=== PATIENT | male | born 1955 | race Caucasian/White ===

== ENCOUNTER 2023-05-14 22:38 | Inpatient (IN) | payer MEDICARE, SELFPAY ==
[2023-05-14] MEDS ORDERED: Acetaminophen 325 MG TAB PO PRN (23:07)
[2023-05-14] MEDS ORDERED: Ondansetron PF 4 MG/2 ML Vial IVP PRN (23:07)
[2023-05-14] MEDS ORDERED: Electrolyte Replacement Protocol 1 EACH FS SCH (23:45)
[2023-05-14] MEDS ORDERED: Lorazepam 2 MG/ML VIAL IM PRN (23:55)
[2023-05-14] MEDS ORDERED: Lorazepam 1 MG TAB PO PRN (23:55)
[2023-05-14] MEDS ORDERED: Thiamine HCl 200 MG/2 ML VIAL SLOW IVP SCH (23:59)
[2023-05-15 00:09] VITALS: BMI 21.9
[2023-05-15 00:22] LABS: Anion Gap 12 mmol/L (10-20); BUN (Urea Nitrogen) 7 mg/dL (8.4-25.7); Calc. Creatinine Clearance 108 mL/min (70-130); Calcium 9.3 mg/dL (7.8-10.44); Carbon Dioxide 27 mmol/L (23-31); Chloride 99 mmol/L (98-107); Estimated GFR 100; Glucose 101 mg/dL (80-115); Magnesium 1.8 mg/dL (1.6-2.6); Sodium 135 mmol/L (136-145)
[2023-05-15 00:42] LABS: Phosphorus 2.3 mg/dL (2.3-4.7)
[2023-05-15] MEDS: Lorazepam 1 MG TAB PO SCH ×5 (01:14→23:02)
[2023-05-15] MEDS ORDERED: Potassium Chloride 20 MEQ TAB PO SCH ×2 (01:45→08:15)
[2023-05-15] MEDS ORDERED: Magnesium 2 GM/50 ML(in water) 2 GM in Premix Bag 1 BAG IVPB SCH (01:45)
[2023-05-15 05:30] LABS: #Eosinphils 0.1 thou/uL (0.0-0.7); #Monocytes 0.8 thou/uL (0.11-0.59); #Neutrophils 4.8 thou/uL (1.40-6.50); %Basophils 0.4 % (0.0-1.0); %Eosinophils 1.1 % (0.0-10.0); %Lymphocytes 19.7 % (21.0-51.0); %Monocytes 11.1 % (0.0-10.0); Hemoglobin 10.3 g/dL (14.0-18.0); Mean Corpuscular HGB CONC 33.4 g/dL (32.0-36.0); Mean Corpuscular Volume 92.8 fl (78.0-98.0); Mean Platelet Volume 10.9 fL (7.4-10.4); RBC Distribution Width 13.8 % (11.5-14.5); Red Blood Cell (RBC) Count 3.32 mill/uL (4.70-6.10); White Blood Cell (WBC) Count 7.2 10x3/uL (4.8-10.8)
[2023-05-15 05:38] LABS: Platelet Count 68 10x3/uL (130-400)
[2023-05-15 05:54] LABS: Anion Gap 12 mmol/L (10-20); BUN (Urea Nitrogen) 8 mg/dL (8.4-25.7); Calc. Creatinine Clearance 120 mL/min (70-130); Calcium 8.8 mg/dL (7.8-10.44); Carbon Dioxide 26 mmol/L (23-31); Chloride 102 mmol/L (98-107); Estimated GFR 103; Glucose 84 mg/dL (80-115); Magnesium 2.2 mg/dL (1.6-2.6); Potassium 3.1 mmol/L (3.5-5.1); Sodium 137 mmol/L (136-145)
[2023-05-15 05:59] LABS: ALT (SGPT) 21 U/L (8-55); AST (SGOT) 40 U/L (5-34); Albumin 3.5 g/dL (3.4-4.8); Alkaline Phosphatase 45 U/L (40-110); Bilirubin, Direct 0.7 mg/dL (0.1-0.3); Bilirubin, Total 1.6 mg/dL (0.2-1.2); Protein, Total 5.9 g/dL (5.8-8.1)
[2023-05-15 06:45] LABS: INR-International Normal Ratio 1.1; Prothrombin Time 14.2 sec (12.0-14.7)
[2023-05-15] MEDS ORDERED: Multivit, Therapeutic 1 TAB PO SCH (09:00)
[2023-05-15] MEDS ORDERED: Folic Acid 1 MG TAB PO SCH (09:00)
[2023-05-15] MEDS: Multivitamins, Adult 10 ML, Folic Acid 1 MG, Thiamine HCl 100 MG in Dextrose 5 %-0.45 %... IV SCH (09:16)
[2023-05-15] MEDS: Acetaminophen/Codeine 30-300mg Tablet PO SCH ×2 (17:37→23:02)
[2023-05-15] MEDS ORDERED: Lorazepam 1 MG TAB PO PRN (23:55)
[2023-05-16 05:50] LABS: #Eosinphils 0.2 thou/uL (0.0-0.7); #Monocytes 0.7 thou/uL (0.11-0.59); #Neutrophils 4.1 thou/uL (1.40-6.50); %Basophils 0.5 % (0.0-1.0); %Eosinophils 2.4 % (0.0-10.0); %Lymphocytes 21.9 % (21.0-51.0); %Monocytes 10.7 % (0.0-10.0); Hemoglobin 9.5 g/dL (14.0-18.0); Mean Corpuscular HGB CONC 32.6 g/dL (32.0-36.0); Mean Corpuscular Hemoglobin 30.8 pg (27.0-31.0); Mean Corpuscular Volume 94.5 fl (78.0-98.0); Mean Platelet Volume 11.3 fL (7.4-10.4); Platelet Count 63 10x3/uL (130-400); RBC Distribution Width 13.8 % (11.5-14.5); Red Blood Cell (RBC) Count 3.08 mill/uL (4.70-6.10); White Blood Cell (WBC) Count 6.4 10x3/uL (4.8-10.8)
[2023-05-16] MEDS: Acetaminophen/Codeine 30-300mg Tablet PO SCH ×3 (05:52→17:45)
[2023-05-16] MEDS: Lorazepam 1 MG TAB PO SCH ×3 (05:53→17:45)
[2023-05-16 06:16] LABS: Anion Gap 11 mmol/L (10-20); BUN (Urea Nitrogen) 7 mg/dL (8.4-25.7); Calc. Creatinine Clearance 113 mL/min (70-130); Calcium 8.4 mg/dL (7.8-10.44); Carbon Dioxide 26 mmol/L (23-31); Chloride 103 mmol/L (98-107); Estimated GFR 101; Glucose 93 mg/dL (80-115); Magnesium 1.8 mg/dL (1.6-2.6); Potassium 3.7 mmol/L (3.5-5.1); Sodium 136 mmol/L (136-145)
[2023-05-16] MEDS ORDERED: Magnesium 2 GM/50 ML(in water) 2 GM in Premix Bag 1 BAG IVPB SCH (08:00)
[2023-05-16] MEDS: Multivitamins, Adult 10 ML, Folic Acid 1 MG, Thiamine HCl 100 MG in Dextrose 5 %-0.45 %... IV SCH (14:21)
[2023-05-16 16:19] VITALS: BP 134/66; TEMP 97.5
[2023-05-16] MEDS ORDERED: Lorazepam 0.5 MG TAB PO SCH (23:45)
[2023-05-16] MEDS ORDERED: Lorazepam 1 MG TAB PO PRN (23:55)
[2023-05-17] MEDS ORDERED: Thiamine 100 MG TAB PO SCH (21:00)
[2023-05-17] MEDS ORDERED: Lorazepam 0.5 MG TAB PO PRN (23:55)
== END 2023-05-16 18:19 | disposition home health service (06) | DRG 897 ==
LOC: 2SE 22:38 → OBSVTOIN 05-15 14:59
PROVIDERS: ADMIT Internal Medicine; ATTEND Hospitalist
DX: F10.239 Alcohol dependence with withdrawal, unspecified (principal); E87.1 Hypo-osmolality and hyponatremia; F10.221 Alcohol dependence with intoxication delirium; M19.90 Unspecified osteoarthritis, unspecified site; R44.1 Visual hallucinations; E87.6 Hypokalemia; D69.6 Thrombocytopenia, unspecified; Z79.899 Other long term (current) drug therapy; Z85.828 Personal history of other malignant neoplasm of skin; Z90.49 Acquired absence of other specified parts of digestive tract; Z98.890 Other specified postprocedural states
CPT/HCPCS: 36415; 36416; 80048; 80076; 83735; 84100; 85025; 85610; 85730; 96374; 96375; G0378; J3411; J3475; J7042

== ENCOUNTER → 2024-09-19 | Emergency (ER) | payer MEDICAID, SELFPAY ==
[~2024-09-19] MED LIST: Acetaminophen 500 MG TAB ONE
[2024-09-19 21:50] LABS: #Basophils 0.05 10x3/uL (0.0-0.2); %Basophils 0.3 % (0.0-1.0); %Eosinophils 0.2 % (0.0-10.0); %Lymphocytes 8.3 % (21.0-51.0); %Monocytes 5.8 % (0.0-10.0); Hematocrit 22.2 % (42.0-52.0); Hemoglobin 7.4 g/dL (14.0-18.0); Mean Corpuscular HGB CONC 33.3 g/dL (32.0-36.0); Mean Corpuscular Volume 89.9 fL (78.0-98.0); Mean Platelet Volume 12.5 fL (7.4-10.4); Platelet Count 41 10x3/uL (130-400); RBC Distribution Width 15.5 % (11.5-14.5); Red Blood Cell (RBC) Count 2.47 mill/uL (4.70-6.10)
[2024-09-19 22:10] LABS: ALT (SGPT) 33 U/L (8-55); AST (SGOT) 84 U/L (5-34); Albumin 2.8 g/dL (3.4-4.8); Alkaline Phosphatase 629 U/L (40-110); Anion Gap 19 mmol/L (10-20); BUN (Urea Nitrogen) 8 mg/dL (8.4-25.7); Calc. Creatinine Clearance 0 mL/min (70-130); Calcium 8.1 mg/dL (7.8-10.44); Carbon Dioxide 20 mmol/L (23-31); Chloride 87 mmol/L (98-107); Estimated GFR 105; Globulin 3.5 g/dL (2.4-3.5); Glucose 99 mg/dL (83-110); Magnesium 1.9 mg/dL (1.6-2.6); Potassium 3.5 mmol/L (3.5-5.1); Protein, Total 6.3 g/dL (5.8-8.1); Sodium 122 mmol/L (136-145)
[2024-09-19 22:11] LABS: Lactic Acid 1.46 mmol/L (0.5-2.2)
[2024-09-19 22:20] LABS: Alcohol 19.8 mg/dL (Less than 10); Salicylate Less than 8.0 mg/dL (Less than 8.0)
[2024-09-19 22:21] LABS: Acetaminophen Less than 10 mcg/mL (Less than 10)
[2024-09-19 23:45] LABS: Amphetamine Not Detected (NotDetected); Bacteria/HPF None Seen HPF (None Seen); Barbiturates Screen Not Detected (NotDetected); Benzodiazepine Screen Not Detected (NotDetected); Bilirubin Negative (Negative); Blood, Urine Negative (Negative); CAUTI Indications for Culture Alt mental st,lethar; Clarity Clear (Clear); Cocaine Metabolite Screen Not Detected (NotDetected); Glucose, Urine (Dipstick) Normal (Negative); Ketone, Urine Negative (Negative); Leukocyte Negative Leu/uL (Negative); Methadone Not Detected (NotDetected); Methamphetamine Not Detected (NotDetected); Nitrite Negative (Negative); Opiate Screen Not Detected (NotDetected); Oxycodone Screen Not Detected (NotDetected); Phencyclidine (PCP) Not Detected (NotDetected); Protein, Urine (Dipstick) Negative (Neg-Trace); RBC/HPF 0-3 HPF (0-3); Specific Gravity, Urine 1.003 (1.002-1.036); Squamous Epithelial None Seen HPF (0-3); THC/Cannabinoid Screen Detected (NotDetected); Tricyclic Screen Not Detected (NotDetected); WBC/HPF 0-3 HPF (0-3); pH, Urine 5.5 (5.0-9.0)
[2024-09-19 23:46] LABS: Urine Culture Reflex No No
== END ==
LOC: ERS 18:10
DX: R25.9 Unspecified abnormal involuntary movements (principal); F10.20 Alcohol dependence, uncomplicated; R91.1 Solitary pulmonary nodule; S40.012A Contusion of left shoulder, initial encounter; S00.12XA Contusion of left eyelid and periocular area, initial encounter; I10 Essential (primary) hypertension; W10.9XXA Fall (on) (from) unspecified stairs and steps, initial encounter; Y90.0 Blood alcohol level of less than 20 mg/100 ml
CPT/HCPCS: 70450; 72125; 80053; 80306; 80307; 81001; 82140; 83605; 83735; 84146; 85025; 93005

== ENCOUNTER 2024-09-25 12:00 | Inpatient (IN) | payer MEDICARE, MEDICAID ==
[2024-09-25 14:14] LABS: #Basophils 0.04 10x3/uL (0.0-0.2); #Eosinophils Less than 0.03 10x3/uL (0.0-0.7); %Basophils 0.2 % (0.0-1.0); %Eosinophils 0.1 % (0.0-10.0); %Lymphocytes 7.3 % (21.0-51.0); %Monocytes 6.7 % (0.0-10.0); %Neutrophils 84.4 % (42.0-75.0); Hematocrit 26.7 % (42.0-52.0); Hemoglobin 8.2 g/dL (14.0-18.0); Mean Corpuscular HGB CONC 30.7 g/dL (32.0-36.0); Mean Corpuscular Hemoglobin 28.3 pg (27.0-31.0); Mean Corpuscular Volume 92.1 fL (78.0-98.0); Platelet Count 14 10x3/uL (130-400); RBC Distribution Width 16.7 % (11.5-14.5)
[2024-09-25 14:23] LABS: ALT (SGPT) 28 U/L (8-55); AST (SGOT) 53 U/L (5-34); Albumin 2.4 g/dL (3.4-4.8); Alkaline Phosphatase 519 U/L (40-110); Anion Gap 15 mmol/L (10-20); BUN (Urea Nitrogen) 26 mg/dL (8.4-25.7); Bilirubin, Total 1.9 mg/dL (0.2-1.2); Calc. Creatinine Clearance 0 mL/min (70-130); Carbon Dioxide 22 mmol/L (23-31); Chloride 101 mmol/L (98-107); Estimated GFR 98; Globulin 3.2 g/dL (2.4-3.5); Glucose 123 mg/dL (83-110); Potassium 3.8 mmol/L (3.5-5.1); Protein, Total 5.6 g/dL (5.8-8.1); Sodium 134 mmol/L (136-145)
[2024-09-25 14:24] LABS: Acetaminophen Less than 10 mcg/mL (Less than 10); Alcohol Less than 10.0 mg/dL (Less than 10); Salicylate Less than 8.0 mg/dL (Less than 8.0)
[2024-09-25] MEDS ORDERED: Thiamine HCl 200 MG/2 ML VIAL ONE (14:31)
[2024-09-25 15:43] LABS: Amphetamine Not Detected (NotDetected); Barbiturates Screen Not Detected (NotDetected); Benzodiazepine Screen Detected (NotDetected); Cocaine Metabolite Screen Not Detected (NotDetected); Methadone Not Detected (NotDetected); Methamphetamine Not Detected (NotDetected); Opiate Screen Not Detected (NotDetected); Oxycodone Screen Not Detected (NotDetected); Phencyclidine (PCP) Not Detected (NotDetected); THC/Cannabinoid Screen Detected (NotDetected); Tricyclic Screen Not Detected (NotDetected)
[2024-09-25] MEDS ORDERED: Sodium Chloride 0.9% 100 ML ONE (15:47)
[2024-09-25] MEDS ORDERED: cefTRIAXone (ROCEPHIN) 1 GM VIAL ONE (15:47)
[2024-09-25 16:02] LABS: Bacteria/HPF None Seen HPF (None Seen); Bilirubin Negative (Negative); Blood, Urine Negative (Negative); CAUTI Indications for Culture Alt mental st,lethar; Clarity Clear (Clear); Glucose, Urine (Dipstick) Normal (Negative); Ketone, Urine Negative (Negative); Leukocyte Negative Leu/uL (Negative); Nitrite Negative (Negative); Protein, Urine (Dipstick) 20 mg/dL (Neg-Trace); RBC/HPF 0-3 HPF (0-3); Specific Gravity, Urine 1.023 (1.002-1.036); Squamous Epithelial 0-3 HPF (0-3); Urobilinogen 3 mg/dL (Less than 2); WBC/HPF 0-3 HPF (0-3); pH, Urine 5.5 (5.0-9.0)
[2024-09-25 16:09] LABS: Urine Culture Reflex No No
[2024-09-25 18:01] LABS: Actual Bicarbonate (HCO3a) 19.2 mEq/L (22-28); Analyzer IN Cardio ER; CO2 Tension 28.1 mmHg (35.0-45.0); Hematocrit-ABG 25 % (42.0-52.0); Hemoglobin (Hb) 8.4 g/dL (14.0-18.0); O2 Tension (PaO2), arterial 170.6 mmHg (> 70.0); pH, Arterial 7.453 (7.35-7.45)
[2024-09-25 18:18] LABS: ALV-art Gradient 507.275 mmHg (0-20); Puncture Site Left Brachial artery
[2024-09-25] MEDS ORDERED: Lorazepam 2 MG/ML VIAL IM PRN (18:40)
[2024-09-25] MEDS ORDERED: Ondansetron PF 4 MG/2 ML Vial IVP PRN (18:40)
[2024-09-25] MEDS ORDERED: Ondansetron ODT 4 MG TAB PO PRN (18:40)
[2024-09-25] MEDS ORDERED: Acetaminophen 325 MG TAB PO PRN (18:40)
[2024-09-25] MEDS ORDERED: Electrolyte Replacement Protocol FS SCH (18:45)
[2024-09-25 18:59] VITALS: BMI 20.2
[2024-09-25] MEDS ORDERED: Lorazepam 1 MG TAB PO PRN (19:00)
[2024-09-25 19:07] LABS: #Basophils 0.03 10x3/uL (0.0-0.2); #Eosinophils Less than 0.03 10x3/uL (0.0-0.7); %Basophils 0.2 % (0.0-1.0); %Eosinophils 0.1 % (0.0-10.0); %Lymphocytes 7.7 % (21.0-51.0); %Monocytes 5.4 % (0.0-10.0); %Neutrophils 85.3 % (42.0-75.0); Hematocrit 26.1 % (42.0-52.0); Hemoglobin 8.1 g/dL (14.0-18.0); Mean Corpuscular Hemoglobin 28.4 pg (27.0-31.0); Mean Corpuscular Volume 91.6 fL (78.0-98.0); Platelet Count 14 10x3/uL (130-400); RBC Distribution Width 16.5 % (11.5-14.5); Red Blood Cell (RBC) Count 2.85 mill/uL (4.70-6.10)
[2024-09-25 19:10] LABS: Lactic Acid 2.06 mmol/L (0.5-2.2)
[2024-09-25 19:15] LABS: Magnesium 2.2 mg/dL (1.6-2.6)
[2024-09-25 19:17] LABS: INR-International Normal Ratio 2.1; Prothrombin Time 23.4 sec (12.0-14.7)
[2024-09-25 19:18] LABS: PTT 40.7 sec (22.9-36.1)
[2024-09-25 19:21] LABS: ALT (SGPT) 26 U/L (8-55); AST (SGOT) 47 U/L (5-34); Albumin 2.3 g/dL (3.4-4.8); Alkaline Phosphatase 487 U/L (40-110); Anion Gap 15 mmol/L (10-20); BUN (Urea Nitrogen) 25 mg/dL (8.4-25.7); Bilirubin, Total 1.5 mg/dL (0.2-1.2); Calc. Creatinine Clearance 95 mL/min (70-130); Calcium 7.4 mg/dL (7.8-10.44); Carbon Dioxide 20 mmol/L (23-31); Chloride 105 mmol/L (98-107); Estimated GFR 101; Globulin 3.1 g/dL (2.4-3.5); Glucose 125 mg/dL (83-110); Protein, Total 5.4 g/dL (5.8-8.1); Sodium 136 mmol/L (136-145)
[2024-09-25] MEDS ORDERED: Piperacillin/Tazobactam 3.375 GM VIAL ONE (20:29)
[2024-09-25] MEDS: Piperacillin/Tazobactam 3.375 GM in Sodium Chloride 0.9% 100 ML IVPB SCH (20:36)
[2024-09-25] MEDS ORDERED: Furosemide 20 MG (2 mL) VIAL ONE (20:41)
[2024-09-25] MEDS: Furosemide 20 MG (2 mL) VIAL SLOW IVP SCH (21:13)
[2024-09-25] MEDS: Vancomycin (BATCH) 1.5 GM in Premix 1 BAG IVPB SCH (21:21)
[2024-09-25] MEDS ORDERED: Albumin 25% 25 GM (100 mL) BOT IVPB SCH (23:59)
[2024-09-26] MEDS: Piperacillin/Tazobactam 3.375 GM in Sodium Chloride 0.9% 100 ML IVPB SCH (01:11)
[2024-09-26] MEDS ORDERED: Ipratropium/Albuterol 3 ML NEB NEB PRN (01:36)
[2024-09-26 05:29] LABS: #Basophils 0.06 10x3/uL (0.0-0.2); #Eosinophils Less than 0.03 10x3/uL (0.0-0.7); %Basophils 0.3 % (0.0-1.0); %Eosinophils 0.1 % (0.0-10.0); %Lymphocytes 7.1 % (21.0-51.0); %Monocytes 7.8 % (0.0-10.0); %Neutrophils 83.3 % (42.0-75.0); Hematocrit 27.3 % (42.0-52.0); Hemoglobin 8.2 g/dL (14.0-18.0); Mean Corpuscular Volume 93.2 fL (78.0-98.0); Platelet Count 13 10x3/uL (130-400); RBC Distribution Width 17.2 % (11.5-14.5); Red Blood Cell (RBC) Count 2.93 mill/uL (4.70-6.10)
[2024-09-26 05:34] LABS: INR-International Normal Ratio 2.2; PTT 45.7 sec (22.9-36.1); Prothrombin Time 24.8 sec (12.0-14.7)
[2024-09-26 05:41] LABS: Phosphorus 3.8 mg/dL (2.3-4.7)
[2024-09-26] MEDS: Digoxin 0.5 MG/2 ML AMP SLOW IVP SCH (05:42)
[2024-09-26] MEDS: Digoxin 0.5 MG/2 ML AMP ONE (05:43)
[2024-09-26] MEDS ORDERED: Amiodarone 150 MG, Admixture Fee 1 EACH in Dextrose 5% in Water 100 ML IVPB SCH (05:45)
[2024-09-26] MEDS ORDERED: Amiodarone 450 MG, Admixture Fee 1 EACH in Dextrose 5% in Water 250 ML IVPB SCH (05:45)
[2024-09-26 05:46] LABS: ALT (SGPT) 24 U/L (8-55); AST (SGOT) 47 U/L (5-34); Albumin 2.2 g/dL (3.4-4.8); Alkaline Phosphatase 436 U/L (40-110); Anion Gap 15 mmol/L (10-20); BUN (Urea Nitrogen) 27 mg/dL (8.4-25.7); Bilirubin, Total 1.4 mg/dL (0.2-1.2); Calc. Creatinine Clearance 94 mL/min (70-130); Calcium 7.5 mg/dL (7.8-10.44); Carbon Dioxide 19 mmol/L (23-31); Chloride 105 mmol/L (98-107); Estimated GFR 100; Glucose 117 mg/dL (83-110); Magnesium 2.2 mg/dL (1.6-2.6); Potassium 3.8 mmol/L (3.5-5.1); Protein, Total 5.2 g/dL (5.8-8.1); Sodium 135 mmol/L (136-145)
[2024-09-26] MEDS: Amiodarone 450 MG, Admixture Fee 1 EACH in Dextrose 5% in Water 250 ML IVPB SCH (08:03)
[2024-09-26 08:04] LABS: Vancomycin, Random 15.5 ug/mL (See Comment)
[2024-09-26] MEDS: Folic Acid 1 MG TAB PO SCH (08:39)
[2024-09-26] MEDS: Multivit, Therapeutic 1 TAB PO SCH (08:39)
[2024-09-26] MEDS: Famotidine 20 MG TAB PO SCH (08:40)
[2024-09-26] MEDS: Vancomycin 1 GM in Premix 1 BAG IVPB SCH (12:09)
[2024-09-26] MEDS ORDERED: HYDROcodone/Acetaminophen 5/325 mg Tablet PO PRN (12:53)
[2024-09-26] MEDS: Thiamine HCl 200 MG/2 ML VIAL SLOW IVP SCH ×2 (16:42→17:14)
[2024-09-26 16:56] VITALS: BMI 20.8
[2024-09-26] MEDS: Sodium Chloride 0.9% 100 ML ONE (17:33)
[2024-09-26] MEDS ORDERED: Lorazepam 1 MG TAB PO PRN (19:00)
[2024-09-27 04:43] LABS: ALT (SGPT) 29 U/L (8-55); AST (SGOT) 66 U/L (5-34); Alkaline Phosphatase 345 U/L (40-110); Anion Gap 14 mmol/L (10-20); BUN (Urea Nitrogen) 27 mg/dL (8.4-25.7); Bilirubin, Total 2.2 mg/dL (0.2-1.2); Calc. Creatinine Clearance 87 mL/min (70-130); Calcium 7.7 mg/dL (7.8-10.44); Carbon Dioxide 20 mmol/L (23-31); Chloride 107 mmol/L (98-107); Estimated GFR 97; Globulin 2.8 g/dL (2.4-3.5); Glucose 117 mg/dL (83-110); Potassium 3.5 mmol/L (3.5-5.1); Protein, Total 4.8 g/dL (5.8-8.1); Sodium 137 mmol/L (136-145)
[2024-09-27 06:02] LABS: #Basophils 0.06 10x3/uL (0.0-0.2); %Basophils 0.3 % (0.0-1.0); %Eosinophils 0.2 % (0.0-10.0); %Lymphocytes 7.6 % (21.0-51.0); %Monocytes 10.7 % (0.0-10.0); %Neutrophils 79.8 % (42.0-75.0); Hematocrit 24.9 % (42.0-52.0); Hemoglobin 7.6 g/dL (14.0-18.0); Mean Corpuscular HGB CONC 30.5 g/dL (32.0-36.0); Mean Corpuscular Hemoglobin 28.1 pg (27.0-31.0); Mean Corpuscular Volume 92.2 fL (78.0-98.0); Platelet Count 9 10x3/uL (130-400); RBC Distribution Width 17.9 % (11.5-14.5)
[2024-09-27 06:17] LABS: Anisocytosis SLIGHT = 6-15 cells HPF (0-5); Band 1 % (5-11); Hypochromia SLIGHT = 6-15 cells HPF (0-5); Lymphocytes 1 % (21-51); Metamyelocyte 1 % (0-0); Monocytes 2 % (0-10); Neutrophil 94 % (42-75); Nucleated RBC (Manual Ct) 1 % (0); Platelet Adequacy Comment Platelets Decreased; Polychromasia SLIGHT = 2-3 cells HPF (0-2); Target Cells SLIGHT = 2-5 cells HPF (0-1)
[2024-09-27] MEDS: FLU (Fluad Triv) TS24-25 (65UP)/MF59C/PF 45 MCG/0.5 ML Syringe IM ONE (07:47)
[2024-09-27] MEDS ORDERED: Electrolyte Replacement Protocol FS PRN (09:00)
[2024-09-27 09:22] LABS: Hematocrit 25.5 % (42.0-52.0); Hemoglobin 7.6 g/dL (14.0-18.0); Mean Corpuscular HGB CONC 29.8 g/dL (32.0-36.0); Mean Corpuscular Hemoglobin 28.1 pg (27.0-31.0); Mean Corpuscular Volume 94.4 fL (78.0-98.0); Platelet Count 11 10x3/uL (130-400); RBC Distribution Width 17.8 % (11.5-14.5)
[2024-09-27] MEDS: Potassium Chloride 20 MEQ TAB PO SCH (09:53)
[2024-09-27 10:08] LABS: #Basophils 0.08 10x3/uL (0.0-0.2); #Eosinophils Less than 0.03 10x3/uL (0.0-0.7); %Basophils 0.3 % (0.0-1.0); %Eosinophils 0.1 % (0.0-10.0); %Lymphocytes 6.7 % (21.0-51.0); %Monocytes 10.3 % (0.0-10.0); %Neutrophils 80.7 % (42.0-75.0)
[2024-09-27] MEDS: Potassium Chloride 20 MEQ in Premix 1 BAG IVPB SCH (10:23)
[2024-09-27 11:22] LABS: Lactic Acid 1.49 mmol/L (0.5-2.2)
[2024-09-27] MEDS ORDERED: Morphine 2 MG/ML VIAL SLOW IVP PRN (12:54)
[2024-09-27] MEDS ORDERED: Lorazepam 2 MG/ML VIAL SLOW IVP PRN (12:55)
[2024-09-27 14:49] LABS: Influenza A by NAA Not Detected (NotDetected); Influenza B by NAA Not Detected (NotDetected); RSV by NAA Not Detected (NotDetected); SARS-CoV-2 NAA Rapid Test Not Detected (NotDetected)
[2024-09-27] MEDS: Morphine 2 MG/ML VIAL SLOW IVP PRN (15:24)
[2024-09-27] MEDS: Lorazepam 2 MG/ML VIAL SLOW IVP PRN (15:25)
[2024-09-27] MEDS ORDERED: Lorazepam 1 MG TAB PO PRN (19:00)
[2024-09-27 20:06] LABS: Potassium 3.6 mmol/L (3.5-5.1)
[2024-09-28 03:15] VITALS: BP 90/58; TEMP 97.3
[2024-09-28] MEDS ORDERED: Thiamine 100 MG TAB PO SCH (09:00)
[2024-09-28] MEDS ORDERED: Lorazepam 0.5 MG TAB PO PRN (19:00)
== END 2024-09-28 04:05 | disposition expired | DRG 871 ==
LOC: ERS 12:00 → ERHOLD 17:36 → IMCU/EMU 22:37 → T4-B 09-27 19:48
PROVIDERS: ADMIT Family Medicine; ATTEND Internal Medicine
PROC: 4A033R1 Measurement of Arterial Saturation, Peripheral, Percutaneous Approach (ICD-10-PCS; principal; 2024-09-25)
PROC: 3E02340 Introduction of Influenza Vaccine into Muscle, Percutaneous Approach (ICD-10-PCS; 2024-09-26)
DX: A41.1 Sepsis due to other specified staphylococcus (principal); E43 Unspecified severe protein-calorie malnutrition; G93.41 Metabolic encephalopathy; J18.9 Pneumonia, unspecified organism; J96.01 Acute respiratory failure with hypoxia; K86.2 Cyst of pancreas; R64 Cachexia; F10.139 Alcohol abuse with withdrawal, unspecified; I34.0 Nonrheumatic mitral (valve) insufficiency; Z66 Do not resuscitate; Z51.5 Encounter for palliative care; I34.89 Other nonrheumatic mitral valve disorders; E87.70 Fluid overload, unspecified; D64.9 Anemia, unspecified; D69.6 Thrombocytopenia, unspecified; E88.09 Other disorders of plasma-protein metabolism, not elsewhere classified; K86.89 Other specified diseases of pancreas; I48.91 Unspecified atrial fibrillation; Z68.20 Body mass index [BMI] 20.0-20.9, adult
CPT/HCPCS: 0241U; 36415; 36600; 51701; 70450; 71045; 76705; 80053; 80202; 80306; 80307; 81001; 82010; 82140; 82550; 82805; 83605; 83735; 83880; 84100; 84145; 85025; 85610; 85730; 87040; 87077; 87086; 87149; 87186; 93005; 93010; 93306; 94660; 96374; 96375; 97139; J0282; J0696; J1160; J1940; J2060; J2272; J2543; J3370; J3411; J3480; J7070